=== PATIENT | female | born 1960 | race Caucasian/White ===

== ENCOUNTER 2020-05-18 12:50 | Emergency (ER) | payer OTHER, SELFPAY ==
--- NOTE | ~2020-05-18 | XR_ITS ---
EXAMINATION: XR knee LT min 4V DATE: 05/18/2020 13:22 INDICATION: Left knee pain TECHNIQUE: Anteroposterior, 2 oblique and crosstable lateral views of the left knee were obtained COMPARISON: None. FINDINGS: Alignment is normal. No fracture. There is moderate severity joint space narrowing in the medial com partment on one of the oblique views. Of note joint space narrowing can be underestimated on nonweigh tbearing imaging. There are moderate size marginal osteophytes in all 3 compartments. There is also a central subchondral osteophyte at the junction of the lateral trochlea and weightbearing lateral fem oral condyle. No joint effusion/layering lipohemarthrosis. Soft tissues are unremarkable. IMPRESSION: 1. No left knee joint effusion or acute osseous abnormality. 2. Tricompartmental osteoarthritis with at least moderate severity in the medial compartment although evaluation for severity of joint space narrowing is limited on nonweightbearing imaging. Reviewed, dictated and finalized at location [facility]. [facility] IMPRESSION: 1. No left knee joint effusion or acute osseous abnormality. 2. Tricompartmental osteoarthritis with at least moderate severity in the media l compartment although evaluation for severity of joint space narrowing is limi froy on nonweightbearing imaging.
--- NOTE | 2020-05-18 13:13 | ED.EXTPRO ---
HPI - Extremity Problem General Chief complaint: Extremity Problem,Nontraumatic Stated complaint: left knee pain Time Seen by Provider: 05/18/20 12:53 Source: patient Mode of arrival: ambulatory Limitations: no limitations History of Present Illness HPI Narrative: This is a 60 year old female that presents to the ER for left knee pain since yesterday. Reports the pain is worse with weight bearing and relieved with rest. No known injury or trauma. She was prescribed an anti-inflammatory by her PCP with little relief. Does report she has had trouble with her knees in the past, but has not seen an orthopedic doctor for this. Denies fever, erythema, edema, decreased ROM or numbness. Related Data Allergies Allergy/AdvReac Type Severity Reaction Status Date / Time No Known Allergies Allergy Verified 05/18/20 13:40 Review of Systems Review of Systems: Narrative: CONSTITUTIONAL: Denies fever SKIN: Denies rash MUSCULOSKELETAL: Reports joint pain, and myalgia. NEUROLOGIC: Denies numbness, or weakness. All systems reviewed & are unremarkable except as noted in HPI and below PMFSH Past Medical History Medical History (Updated 05/18/20 @ 13:40 by Ana Maria Alcantara PA-C) History of diabetes mellitus History of hyperlipidemia Social History Social History Gender identity (if verbalized by the patient): Female Exam Narrative: Exam Narrative: GENERAL: Well-appearing, obese, and in no acute distress. HEAD: Normocephalic, atraumatic. EYES: EOMI. EXTREMITIES: Normal range of motion. No edema, erythema or obvious deformity. Normal DP pulses. Normal sensation SKIN: Warm, dry, no rash. NEURO: No focal deficits. Alert and oriented x3. PSYCH: Normal mood and affect Course Vital Signs Vital signs: Vital Signs Temperature 98.2 F 05/18/20 13:33 Pulse Rate 75 05/18/20 13:33 Respiratory Rate 18 05/18/20 13:33 Blood Pressure 125/56 L 05/18/20 13:33 Pulse Oximetry 96 05/18/20 13:33 Temperature 98.2 F 05/18/20 13:33 Pulse Rate 75 05/18/20 13:33 Respiratory Rate 18 05/18/20 13:33 Blood Pressure 125/56 L 05/18/20 13:33 Pulse Oximetry 96 05/18/20 13:33 MDM - Extremity (Nontraumatic) MDM Narrative Medical decision making narrative: Patient presents to the ER for left knee pain since yesterday. No known injury or trauma. No erythema, edema or warmth on exam. Left knee x-ray shows tricompartmental osteoarthritis. Likely patient's source of pain. Patient was updated on case findings. Will be given orthopedics for follow up. She was given warnings to return to the ER Imaging Data Radiologist's impression: ITS Impressions Knee X-Ray 05/18/20 13:24 IMPRESSION: 1. No left knee joint effusion or acute osseous abnormality. 2. Tricompartmental osteoarthritis with at least moderate severity in the medial compartment although evaluation for severity of joint space narrowing is limited on nonweightbearing imaging. Critical Care Time Critical Care Time Critical Care Time: No Discharge Plan Discharge Clinical Impression: Osteoarthritis of knee Qualifiers: Osteoarthritis type: primary Laterality: left Qualified Code(s): M17.12 - Unilateral primary osteoarthritis, left knee Patient Disposition: Home, Self-Care Condition: Stable Instructions: Osteoarthritis (ED) Additional Instructions: Return to the emergency department if you experience fever, redness and swelling of your leg, numbness, or any other symptoms that are concerning to you Rest. Elevate. Ice the area. Tylenol or anti-inflammatories as needed for pain Follow-up with your primary care doctor and/ orthopedics for further care Follow-up/Referrals: Hamilton,Montez Rivera MD [Primary Care Provider] - Philippe Poe MD [Physician] - 1 Week
[2020-05-18 13:33] VITALS: BP 125/56; PULSE 75; RESP 18; TEMP 36.8; O2SAT 96
[2020-05-18] MEDS: traMADol HCL (*CRX) 50 MG TABLET PO (13:46)
[2020-05-18 15:25] VITALS: BP 131/59; PULSE 73; RESP 18; O2SAT 97
== END 2020-05-18 15:27 | disposition home or self-care (01) ==
PROVIDERS: Emergency Provider Emergency Medicine; PCP Internal Medicine
DX: M17.12 Unilateral primary osteoarthritis, left knee (principal); E11.9 Type 2 diabetes mellitus without complications; E78.5 Hyperlipidemia, unspecified
CPT/HCPCS: 73564; 99283; A9270

== ENCOUNTER 2024-09-13 12:21 | Outpatient (CLI) | payer OTHER, SELFPAY ==
--- NOTE | ~2024-09-13 | MM_ITS ---
EXAMINATION: MM screening [facility] w [facility] HISTORY: Screening mammogram TECHNIQUE: Craniocaudal and mediolateral oblique 3-D tomosynthesis images were obtained and synthetic 2-D images were generated. CAD analysis was submitted and interpreted. COMPARISON: No prior mammogram is available for comparison at this institution. BREAST PARENCHYMAL COMPOSITION:Not Dense. There are scattered areas of fibroglandular density. FINDINGS: No suspicious mass, calcification, or architectural distortion are identified in either felix ast to suggest malignancy. There has been no suspicious interval change. IMPRESSION: No mammographic evidence of malignancy. Recommend routine screening mammography in one year. BI-RADS Category 1: Negative Reviewed, dictated and finalized at location .
== END 2024-09-13 12:22 | disposition home or self-care (01) ==
LOC: MICIMG 12:22
PROVIDERS: PCP Internal Medicine; Visit Provider Internal Medicine
DX: Z12.31 Encounter for screening mammogram for malignant neoplasm of breast (principal)
CPT/HCPCS: 77063; 77067